=== PATIENT | female | born 1930 | race Two or more races ===

== ENCOUNTER 2018-04-07 18:19 | Inpatient (IN) | payer MEDICARE, MEDICAID ==
[~2018-04-07] VITALS: Ht 160 cm; Wt 67.6 kg
[~2018-04-07 18:19] MED LIST: AMIO200T4 PO; ATOR10TA PO; DABI150C PO; DIGO125T PO; ESCI10TA PO; GABA-534 PO; METO-356 PO; MIRT15TA7 PO; Nystatin PO; TEMA30CA PO
--- NOTE | 2018-04-07 18:20 | NUR ---
BBRA 86 FROM HOME FOR NEAR SYNCOPAL EPISODE AND HYPOTENSIVE 500 ML NS GIVEN IN FIELD. PLACED ON MONITOR.AWAITING MD ORDER
[2018-04-07] MEDS ORDERED: IV NS 0.9% 500 ML BAG IV ONE (19:00)
--- NOTE | 2018-04-07 19:18 | NUR ---
GAVE REPORT TO [facility] FOR ADELITA
--- NOTE | 2018-04-07 19:19 | NUR ---
RECEIVED REPORT FROM BILLY HINES FOR ADELITA. PT RESTING IN BED WITH NO S/S OF DISTRESS OR DISCOMFORT NOTED.
[2018-04-07 19:44] LABS: ALANINE AMINOTRANSFERASE 17 U/L (12-78); ALBUMIN 3.2 g/dL (3.4-5.0); ALKALINE PHOSPHATASE 71 U/L (46-116); ASPARTATE AMINOTRANSFERASE 17 U/L (15-37); BILIRUBIN,DIRECT 0.1 mg/dL (0.0-0.2); BILIRUBIN,TOTAL 0.3 mg/dL (0.2-1.0); CALCIUM, SERUM 8.7 mg/dL (8.5-10.1); CARBON DIOXIDE 25 mmol/L (21-32); CHLORIDE 106 mmol/L (98-107); CREATININE 1.5 mg/dL (0.6-1.3); GLUCOSE 130 mg/dL (74-106); INR 1.03 (0.87-1.13); POTASSIUM 5.3 mmol/L (3.5-5.1); SODIUM SERUM 140 mmol/L (136-145); TOTAL PROTEIN, SERUM 7.5 g/dL (6.4-8.2); UREA NITROGEN, BLOOD 31 mg/dL (7-18)
[2018-04-07 19:46] LABS: TROPONIN I < 0.017 ng/mL (0.00-0.056)
[2018-04-07 20:40] LABS: BASOPHILS % (AUTO) 0.1 % (0.0-2.0); EOSINOPHILS % (AUTO) 4.4 % (0.0-6.0); HEMATOCRIT 38 % (33-45); HEMOGLOBIN 12.6 g/dL (11.5-14.8); LYMPHOCYTES # (AUTO) 1.5 /CMM (0.8-4.8); LYMPHOCYTES % (AUTO) 20.1 % (20.0-44.0); MEAN CORPUSCULAR HGB CONC 33 g/dl (31.0-36.0); MEAN CORPUSCULAR VOLUME 93 fL (82-100); MONOCYTES # (AUTO) 0.7 /CMM (0.1-1.30); MONOCYTES % (AUTO) 8.6 % (2.0-12.0); NEUTROPHILS # (AUTO) 5.1 /CMM (1.8-8.9); NEUTROPHILS % (AUTO) 66.8 % (43.0-81.0); PLATELET COUNT (AUTO) 154 /CMM (150-450); RDW COEFFICIENT OF VARIATION 13.7 (11.5-15.0); RED BLOOD CELL COUNT(AUTO) 4.07 MIL/uL (4.0-5.2); WHITE BLOOD COUNT (AUTO) 7.7 K/uL (4.3-11.0)
--- NOTE | 2018-04-07 20:41 | NUR ---
REPORT GIVEN TO HILLARY BARRIENTOS FOR ADELITA.
[2018-04-07 21:15] VITALS: BP 152/85
--- NOTE | 2018-04-07 21:15 | NUR ---
STRIP POLISHER NEW ADMISSION NOTES RECEIVED PT FROM ER ACCOMPANIED BY STAFF & FAMILY, A & O X 4, FARSI SPEAKING WITH LITTLE SOUTH KOREAN. NO C/O CHEST PAIN OR ANY OTHER PAIN VERBALIZED UPON ADMISSION TO THE UNIT. NO SOB, NO ACUTE DISTRESS, @ RA SATTING @ 98 %. SMILING, TALKATIVE TO THE FAMILY. NO C/O DIZZINESS VERBALIZED WELL. IV ACCESS TO RAC, INTACT PATENT. CONTINENT OF B & BM, BRP WITH ASSISTANCE. BODY CHECK DONE, PHOTOS TAKEN & PLACED IN THE CHART. ALL BELONGINGS ACCOUNTED FOR & DOCUMENTED BY PRINTING MACHINE OPERATOR TAPE RULES. ON TELE MONITORING WITH V PACING 81. ALL NEW ORDERS REVIEWED WITH , NOTED & CARRIED OUT. INSTRUCTED THE PT NOT TO GET OUT OF BED BY HERSELF, CALL FOR ASSISTANCE, VERBALIZED UNDERSTANDING. BED IN LOW LOCKED POSITION. CALL LIGHT & BED SIDE TABLE IN REACH. WILL CONTINUE TO MONITOR VERY CLOSELY.
[2018-04-07 21:22] LABS: APPEARANCE,URINE CLEAR (CLEAR); BILIRUBIN,URINE NEGATIVE (NEGATIVE); BLOOD, URINE NEGATIVE Ery/uL (NEGATIVE); COLOR,URINE YELLOW (YELLOW); KETONES,URINE NEGATIVE (NEGATIVE); LEUKOCYTE ESTERASE ,URINE NEGATIVE (NEGATIVE); NITRITE, URINE NEGATIVE (NEGATIVE); PROTEIN,URINE NEGATIVE (NEGATIVE); UGLUCOSE NEGATIVE (NEGATIVE); UROBILINOGEN,URINE 0.2 EU/dL (0.2)
[2018-04-07 21:45] VITALS: BP 152/85
[2018-04-07] MEDS ORDERED: ACETAMINOPHEN 325 MG TABLET PO PRN (22:00)
[2018-04-07] MEDS ORDERED: MAG HYDROX/AL HYDROX/SIMETH 30 ML UDC PO PRN (22:00)
[2018-04-07] MEDS ORDERED: MAGNESIUM HYDROXIDE 30 ML UDC PO PRN (22:00)
[2018-04-07] MEDS ORDERED: HYDROCODONE/APAP 5/325MG 1 EACH TABLET PO PRN (22:00)
[2018-04-07] MEDS ORDERED: Z GUARD REMEDY 2 OZ OINT TP PRN (22:00)
[2018-04-07] MEDS ORDERED: ONDANSETRON HCL/PF 4 MG/2 ML VIAL IVP PRN (22:00)
[2018-04-07] MEDS: IV NS 0.9% 1,000 ML IV PRN (22:43)
[2018-04-07] MEDS ORDERED: PANT40TA4 PO (23:38)
[2018-04-07] MEDS: ZOLPIDEM TARTRATE 5 MG TABLET PO PRN (23:45)
--- NOTE | 2018-04-07 23:45 | NUR ---
PRN AMBIEN GIVEN PT REQUESTED TO TAKE SLEEPING MEDICINE, PRN AMBIEN GIVEN. WILL MONITOR FOR EFFECTIVENESS.
[2018-04-08] VITALS (11 sets, daily range): BP systolic 32–143; BP diastolic 42–79
[2018-04-08] MEDS ORDERED: TEMAZEPAM 15 MG CAPSULE PO PRN (01:00)
--- NOTE | 2018-04-08 01:00 | NUR ---
[employer] NOTE PT NOTED TO BE SLEEPING INTERMITTENTLY @ THIS TIME. ALL NEEDS MET. MONITORING CLOSELY.
--- NOTE | 2018-04-08 06:26 | NUR ---
MACHINE ENGINEER CLOSING NOTES PT SLEPT INTERMITTENTLY, A & O X 4, FARSI SPEAKING WITH LITTLE INDIAN. NO C/O CHEST PAIN OR ANY OTHER PAIN VERBALIZED. NO SOB, NO ACUTE DISTRESS, @ RA SATTING @ 97 %. NO C/O DIZZINESS VERBALIZED WELL. IV ACCESS TO RAC, INTACT PATENT, RUNNING WITH NS ORDERED. CONTINENT OF B & BM, BRP WITH ASSISTANCE. ON TELE MONITORING WITH V PACING 70. INSTRUCTED THE PT NOT TO GET OUT OF BED BY HERSELF, CALL FOR ASSISTANCE, VERBALIZED UNDERSTANDING. ALL NEEDS ATTENDED TO & MET. BED IN LOW LOCKED POSITION. CALL LIGHT & BED SIDE TABLE IN REACH. WILL ENDORSE TO AM RN FOR CONTINUITY OF CARE.
--- NOTE | 2018-04-08 08:00 | NUR ---
RN NOTES RECEIVED PATIENT IN THE BED A/O X3 INDONESIAN SPEAKER. ASSIST PATIENT TO THE BATHROOM WITH MINIMUM ASSIST. PATIENT FALL PRECAUTION. PATIENT HAS NO C/O PAIN AST THIS TIME, NO RESPIRATORY DISTRESS, V/S STABLE. PATIENT TAKE SCHEDULED MEDICATION, NEEDS ATTENDED AND ANTICIPATED, CALL LIGHT WITHIN TO REACH, SAFETY PRECAUTION MAINTAINED ALL THE AVI. INFUSING NS AT 75 ML IN RIGHT AC AREA INTACT. CONTINUED MONITORING.
[2018-04-08 08:22] LABS: BASOPHILS % (AUTO) 0.4 % (0.0-2.0); HEMATOCRIT 38 % (33-45); HEMOGLOBIN 12.6 g/dL (11.5-14.8); LYMPHOCYTES # (AUTO) 1.9 /CMM (0.8-4.8); MEAN CORPUSCULAR HGB CONC 33 g/dl (31.0-36.0); MEAN CORPUSCULAR VOLUME 93 fL (82-100); MONOCYTES # (AUTO) 0.6 /CMM (0.1-1.30); MONOCYTES % (AUTO) 7.3 % (2.0-12.0); NEUTROPHILS # (AUTO) 4.9 /CMM (1.8-8.9); NEUTROPHILS % (AUTO) 63.3 % (43.0-81.0); PLATELET COUNT (AUTO) 145 /CMM (150-450); RDW COEFFICIENT OF VARIATION 13.4 (11.5-15.0); RED BLOOD CELL COUNT(AUTO) 4.08 MIL/uL (4.0-5.2); WHITE BLOOD COUNT (AUTO) 7.8 K/uL (4.3-11.0)
[2018-04-08] MEDS: GABAPENTIN 300 MG CAPSULE PO SCH (08:48)
[2018-04-08] MEDS: ATORVASTATIN 10 MG TABLET PO SCH (08:48)
[2018-04-08] MEDS: METOPROLOL SUCCINATE 25 MG TAB.SR.24H PO SCH (08:48)
[2018-04-08] MEDS: AMIODARONE HCL 200 MG TABLET PO SCH (08:49)
[2018-04-08] MEDS: ESCITALOPRAM OXALATE (10 MG) 10 MG TABLET PO SCH (08:49)
[2018-04-08 08:54] LABS: CALCIUM, SERUM 8.9 mg/dL (8.5-10.1); CARBON DIOXIDE 21 mmol/L (21-32); CHLORIDE 108 mmol/L (98-107); CREATININE 1.4 mg/dL (0.6-1.3); GLUCOSE 107 mg/dL (74-106); MAGNESIUM 1.9 mg/dL (1.8-2.4); PHOSPHORUS 2.4 mg/dL (2.5-4.9); SODIUM SERUM 140 mmol/L (136-145); UREA NITROGEN, BLOOD 25 mg/dL (7-18)
[2018-04-08] MEDS: DIGOXIN 0.125 MG TABLET PO SCH (08:57)
[2018-04-08] MEDS ORDERED: AMIODARONE HCL 200 MG TABLET PO SCH (09:00)
[2018-04-08] MEDS ORDERED: PANTOPRAZOLE 40 MG VIAL IV SCH (09:00)
[2018-04-08] MEDS ORDERED: MIRTAZAPINE 15 MG TABLET PO SCH ×2 (09:00→22:00)
[2018-04-08 09:05] LABS: CHOLESTEROL 131 mg/dL (<200); HDL CHOLESTEROL 43 mg/dL (40-60); LDL 76 mg/dL (0-99); THYROID STIMULATING HORMONE 3.641 uIU/mL (0.358-3.74); TRIGLYCERIDES 112 mg/dL (30-150)
[2018-04-08] MEDS: DABIGATRAN ETEXILATE MESYLATE 150 MG CAPSULE PO SCH ×2 (09:17→16:42)
[2018-04-08 09:55] LABS: ALBUMIN 2.9 g/dL (3.4-5.0); BILIRUBIN,DIRECT 0.1 mg/dL (0.0-0.2); BILIRUBIN,TOTAL 0.2 mg/dL (0.2-1.0); TOTAL PROTEIN, SERUM 6.8 g/dL (6.4-8.2)
[2018-04-08 10:30] LABS: DIGOXIN 1.34 ng/mL (0.90-2.00)
--- NOTE | 2018-04-08 12:00 | NUR ---
RN NOTES PATIENT SITTING IN THE CHAIR, FAMILY NEXT TO THE BED, NO ACUTE DISTRESS. CALL LIGHT WITHIN TO REACH, CONTINUED MONITORING.
[2018-04-08] MEDS: IV NS 0.9% 1,000 ML IV PRN (12:50)
[2018-04-08] MEDS ORDERED: K PHOS NEUTRAL 250 MG TABLET PO ONE (13:30)
--- NOTE | 2018-04-08 18:33 | NUR ---
RN NOTES PATIENT STABLE RESTING IN THE BED, NO ACUTE RESPIRATORY DISTRESS. PATIENT MED COMPLIANT, V/S STABLE. NO COMPLAINING OF PAIN AT THIS TIME. CONTINUED MONITORING.
--- NOTE | 2018-04-08 18:36 | NUR ---
ENDORSED ONCOMING NURSE FOR PLAN OF CARE
--- NOTE | 2018-04-08 19:30 | NUR ---
MS RN OPENING NOTE Patient was seen lying in bed AAOx4, breathing on RA with no SOB, no signs of acute distress; patient appeared to be in good spirits and had family at bedside. Telemonitor shows V-pacing in the 70s. Patient has no immediate needs/concerns at this time. Will continue to monitor.
[2018-04-08] MEDS: ZOLPIDEM TARTRATE 5 MG TABLET PO PRN (22:38)
--- NOTE | 2018-04-08 22:40 | NUR ---
RN MS NOTE - Ambien Patient requested Ambien for sleep. Administered 5mg PO Ambien as ordered.
--- NOTE | 2018-04-08 23:56 | NUR ---
MS RN NOTE Report given to Ade for continuity of care. Evening meds administered. Patient in stable condition.
--- NOTE | 2018-04-09 | NUR ---
MS RN NOTE RECEIVED REPORT FROM GUI CERVANTES FOR CONTINUITY OF CARE. PT RESTING COMFORTABLY IN BED. CALL LIGHT WITHIN REACH. WILL MONITOR.
[2018-04-09 06:43] LABS: ALANINE AMINOTRANSFERASE 14 U/L (12-78); ALBUMIN 2.8 g/dL (3.4-5.0); ALKALINE PHOSPHATASE 61 U/L (46-116); ASPARTATE AMINOTRANSFERASE 15 U/L (15-37); BILIRUBIN,TOTAL 0.3 mg/dL (0.2-1.0); CALCIUM, SERUM 8.9 mg/dL (8.5-10.1); CARBON DIOXIDE 24 mmol/L (21-32); CHLORIDE 109 mmol/L (98-107); CREATININE 1.3 mg/dL (0.6-1.3); GLUCOSE 106 mg/dL (74-106); MAGNESIUM 1.9 mg/dL (1.8-2.4); PHOSPHORUS 2.9 mg/dL (2.5-4.9); POTASSIUM 4.6 mmol/L (3.5-5.1); SODIUM SERUM 142 mmol/L (136-145); TOTAL PROTEIN, SERUM 6.6 g/dL (6.4-8.2); UREA NITROGEN, BLOOD 25 mg/dL (7-18)
[2018-04-09 06:51] LABS: BASOPHILS % (AUTO) 0.4 % (0.0-2.0); EOSINOPHILS % (AUTO) 5.4 % (0.0-6.0); HEMATOCRIT 35 % (33-45); HEMOGLOBIN 11.6 g/dL (11.5-14.8); LYMPHOCYTES # (AUTO) 1.7 /CMM (0.8-4.8); LYMPHOCYTES % (AUTO) 22.8 % (20.0-44.0); MEAN CORPUSCULAR HGB CONC 33 g/dl (31.0-36.0); MEAN CORPUSCULAR VOLUME 92 fL (82-100); MONOCYTES # (AUTO) 0.7 /CMM (0.1-1.30); MONOCYTES % (AUTO) 8.9 % (2.0-12.0); NEUTROPHILS # (AUTO) 4.6 /CMM (1.8-8.9); NEUTROPHILS % (AUTO) 62.5 % (43.0-81.0); PLATELET COUNT (AUTO) 144 /CMM (150-450); RDW COEFFICIENT OF VARIATION 13.6 (11.5-15.0); RED BLOOD CELL COUNT(AUTO) 3.77 MIL/uL (4.0-5.2); WHITE BLOOD COUNT (AUTO) 7.4 K/uL (4.3-11.0)
[2018-04-09 07:04] LABS: TROPONIN I < 0.017 ng/mL (0.00-0.056)
--- NOTE | 2018-04-09 07:20 | NUR ---
RN NOTES PATIENT A/OX4, VERY PLEASANT LADY, ABLE TO VERBALIZE NEEDS, BREATHING EVEN AND UNLABORED, NO SOB NOTED, DAUGHTER AT BEDSIDE, PATIENT DENIES DIZZINESS OR HEADACHE AT THIS TIME. NEEDS ATTENDED AND MET, CALL LIGHT WITHIN REACH, WILL CONTINUE TO MONITOR.
[2018-04-09 08:04] VITALS: BP 122/73
[2018-04-09] MEDS: DIGOXIN 0.125 MG TABLET PO SCH (08:51)
[2018-04-09] MEDS: AMIODARONE HCL 200 MG TABLET PO SCH (08:51)
[2018-04-09] MEDS: ESCITALOPRAM OXALATE (10 MG) 10 MG TABLET PO SCH (08:52)
[2018-04-09] MEDS: GABAPENTIN 300 MG CAPSULE PO SCH (08:52)
[2018-04-09] MEDS: ATORVASTATIN 10 MG TABLET PO SCH (08:52)
[2018-04-09 08:53] VITALS: BP 122/73
[2018-04-09] MEDS: DABIGATRAN ETEXILATE MESYLATE 150 MG CAPSULE PO SCH (08:53)
[2018-04-09] MEDS: METOPROLOL SUCCINATE 25 MG TAB.SR.24H PO SCH (08:53)
[2018-04-09] MEDS ORDERED: AMIO200T7 PO (14:27)
--- NOTE | 2018-04-09 14:30 | NUR ---
WOUND CARE CONSULT: PT ALLOWED LIMITED ASSESSMENT OF RT LOWER LEG (BRUISE) AND RT INNER THIGH SLIGHT REDNESS WHICH IS RESOLVING. DEFER TO MD FOR INNER THIGH REDNESS/RASH. PT IS AMBULATORY AND CONTINENT. WILL SEE PRN.
--- NOTE | 2018-04-09 15:45 | NUR ---
RN NOTES PATIENT A/OX4, VERBALLY RESPONSIVE, NO DISTRESS NOTED, PATIENT AND DAUGHTER GIVEN DISCHARGE INSTRUCTIONS AND VERBALIZED UNDERSTANDING, RX GIVEN TO DAUGHTER AND EXPLAINED, DISCHARGE PAPERWORKS SIGNED BY DAUGHTER. CASE MANAGEMENT WILL ARRANGE HOME HEALTH, SKIN ASSESSMENT DONE, CLEAN AND DRY, NO CHANGES. PIV REMOVED, APPLIED PRESSURE AND COVERED WITH GAUZE AND TAPE. BELONGINGS RECONCILED AND COMPLETE. PATIENT LEFT THE FACILITY, ACCOMPANIED BY DAUGHTER, IN NO DISTRESS
== END 2018-04-09 15:45 | disposition home health service (06) | DRG 73 ==
LOC: ER 18:20 → TELE 20:44 → MED 04-08 11:26
PROVIDERS: ADMIT Hospitalist; ATTEND Hospitalist
DX: G90.8 Other disorders of autonomic nervous system (principal); G93.41 Metabolic encephalopathy; N17.0 Acute kidney failure with tubular necrosis; E86.0 Dehydration; E87.5 Hyperkalemia; I48.2 Chronic atrial fibrillation; E78.5 Hyperlipidemia, unspecified; F32.9 Major depressive disorder, single episode, unspecified; I12.9 Hypertensive chronic kidney disease with stage 1 through stage 4 chronic kidney disease, or unspecified chronic kidney disease; I48.92 Unspecified atrial flutter; I34.0 Nonrheumatic mitral (valve) insufficiency; K21.9 Gastro-esophageal reflux disease without esophagitis; N18.9 Chronic kidney disease, unspecified; Z95.810 Presence of automatic (implantable) cardiac defibrillator; Z96.653 Presence of artificial knee joint, bilateral; M19.90 Unspecified osteoarthritis, unspecified site; Z79.01 Long term (current) use of anticoagulants
CPT/HCPCS: 36415; 70450-TC; 71045-TC; 80048-TC; 80053-TC; 80061-TC; 80076-TC; 80162-TC; 81000-TC; 82306; 82728-TC; 82962-TC; 83540-TC; 83735-TC; 84100-TC; 84439-TC; 84443-TC; 84484-TC; 85025-TC; 85730-TC; 87081-TC; 92611-TC; 93307-TC; 93880-TC; C9113; J7030; J7040